=== PATIENT | female | born 1965 | race Caucasian/White ===

== ENCOUNTER 2022-11-14 12:08 | Day surgery (SDC) | payer MEDICAID, SELFPAY ==
--- NOTE | 2022-11-12 16:34 | PCM.HP.BLA ---
History and Physical Date of Admission: 11/14/22 Pre-Op History and Physical ? HPI: The patient is a 57 year old female presenting for pre-operative visit. She is scheduled for hysteroscopy D&C, myomectomy, for AUB for submucosal fibroid on 11/14/22. Procedure discussed along with risks, benefits and complications. Other alternatives discussed for management. Consent form signed? Yes. ? ? PAST MEDICAL HISTORY PAST MEDICAL HISTORY Diagnosis Date ? Allergic rhinitis, cause unspecified ? ? ? PAST SURGICAL HISTORY PAST SURGICAL HISTORY Procedure Laterality Date ? NONE ? 06/2018 ? fibroid Tummor removed ? ? ? CURRENT MEDICATIONS No current outpatient medications on file. ? No current facility-administered medications for this visit. ? ? ALLERGIES: Codeine and Environmental [Other] ? PERSONAL HISTORY: SOCIAL HISTORY Social History ? Tobacco Use ? Smoking status: Never ? Smokeless tobacco: Never Vaping Use ? Vaping Use: Never used Substance Use Topics ? Alcohol use: No ? Drug use: Never ? FAMILY HISTORY: FAMILY HISTORY FAMILY HISTORY Problem Relation Age of Onset ? Hypertension Mother ? ? Hyperlipidemia Mother ? ? Diabetes Mother ? ? Cancer Father ? ? Stomach cancer ? Diabetes Father ? ? Hypertension Father ? ? Hyperlipidemia Father ? ? Heart Father ? ? pacemaker ? COPD Father ? ? other (Pulmonary Embolism) Father ? ? Had DVTs which lead to PE ? other (Other) Father ? ? esophageal adenocarcinoma ? None Sister ? ? Diabetes Maternal Grandfather ? ? Diabetes Paternal Grandfather ? ? Also Uncle with DM ? ? REVIEW OF SYMPTOMS: negative except as noted above PHYSICAL EXAMINATION: ? VITALS: Blood pressure 124/74, height 5' 4 (1.626 m), weight 168 lb (76.2 kg), last menstrual period 11/05/2022. ? GENERAL: The patient is well nourished, well hydrated in no acute distress. , The patient is oriented to time, place, and person. NECK: full range of motion LUNGS: Clear to auscultation bilaterally. no wheezes, rhonchi or rales HEART: Regular rate and rhythm, Normal heart sounds, and No murmurs or gallops ? ? IMPRESSION: Submucosal fibroid, AUB ? PLAN: Hysteroscopy, D&C, Myomectomy ? Pt has been counseled on risks/benefits and alternatives of surgery including but not limited to anesthesia, bleeding, infection, uterine perforation with subsequent injury to pelvic structures including bowel, bladder, ureters and vessels. Pt wishes to proceed with surgery at this time. ? Pre and post op instructions reviewed ? I have reviewed and updated past medical and surgical history, medications and allergies Flory Edwards MD ?4:30 PM Office Visit on 11/12/2022 Office Visit on 11/12/2022 Note shared with patient
[2022-11-14] VITALS (7 sets, daily range): BP systolic 110–140; BP diastolic 67–88; PULSE 53–64; RESP 16; TEMP 36.1–36.6; O2SAT 97–100; BMI 30.1
[2022-11-14 12:48] LABS: Internal QC Validated? YES +Cl - CLEAR BKGD; Pregnancy, Urine Negative Negative
[2022-11-14 13:07] LABS: Hematocrit 37.7 % (37-47); Mean Corp Hgb Conc 34.5 g/dL (32-36); Mean Platelet Vol. 11.3 fl (6.2-12.0); Platelet Count 201 K/mm3 (150-450); RBC Distribution Width CV 11.7 % (11.6-14.6); Red Blood Count 4.19 M/mm3 (4.2-5.4)
[2022-11-14] MEDS: Lactated Ringers 1,000 ML 15 ML IV ×2 (13:10→15:53)
--- NOTE | 2022-11-14 14:00 | EMB_PTH ---
PATIENT: YENI JEFF [place] [facility] [place] U[place][id number] AGE/SX: 57/F ROOM: RE11/14/[address]: Dr. Flory Botello, MDDOB: 1965 BED: DIS: 11/14/2022 SPEC #: [id number] RECD: 11/14/22 16:39 STATUS: RENZO FENG #: [id number] ROBE: 11/14/22 14:[address]: Flory Botello DEPT: SURGICAL PATHOLOGY RECD BY: Sushma Guzman ENTERED: 11/17/22 10:28 SP TYPE: ENDOM BX/C DARREN DR: Dr. Sussy Nolan MD Tissues: Endometrium, NOS Procedures: Surgery Specimen Level IV HEADER OPERATION: Hysteroscopy, D & C Symphion, Myomectomy PRE-OP DIAGNOSIS: Submucosal fluid, abnormal uterine bleeding TISSUE SUBMITTED: Endometrial curettings and submucosal fibroid MICROSCOPIC DIAGNOSIS Endometrial fibroid and curettings: Proliferative endometrium with focal glandular breakdown. Fragments of benign myometrial tissue. AM:keiry 11/18/2022 MICROSCOPIC DESCRIPTION Slides are reviewed. GROSS DESCRIPTION Received in fixative is one container labeled with the patient's name and designated endometrial curettings and submucosal fibroid. The specimen consists of multiple irregular fragments of ca-brown soft tissue that in aggregate measure 2 x 1.5 x 0.2 cm. The specimen is totally submitted in one cassette. / YUMIKO:keiry 11/17/2022 TC:5 CPT: 96752
--- NOTE | 2022-11-14 14:05 | DCINST_ITS ---
Discharge Instructions Procedure D&C Diet Discharge Diet: No restrictions Activity May resume sexual activity in: 1 week Dressing / Incision Call your doctor if you observe: Fever of 101 or Higher, Inability to urinate, Using more than 1 pad per hour and Uncontrolled pain Follow Up Care Please Follow Up With: Flory Botello MD When: 1-2 weeks post OP if you need an appointment please call [phone] Test Results: Test results from this visit will be discussed in further detail at your follow- up appointment, if applicable. Discharge Plan Admission Attending Provider: Flory Botello Primary Care Provider: Sussy Nolan Discharge Orders/Prescriptions Prescriptions: No Action multivitamin Tablet 1 tab PO DAILY cholecalciferol (vitamin D3) [Vitamin D3] 25 mcg (1,000 unit) Tablet 25 mcg PO DAILY Referrals / Follow Up: Sussy Nolan MD [Primary Care Provider] - Disposition Disposition (needs filled in before D/C Order can be placed): Home, Self Care
--- NOTE | 2022-11-14 15:29 | PCM.OPRPT ---
Report of Operation Date of Procedure: 11/14/22 Pre-Operative Diagnosis: AUB, submucosal fibroid Post-Operative Diagnosis: same Surgery/Procedure Performed:: Hysteroscopy, D&C, myomectomy Description of Surgical Findings:: both tubal ostia visualized - submucosal fibroid noted on anterior aspect of uterus Surgeon: Flory Botello Type of Anesthesia: MAC Specimen's removed: endometrial curettings, submucosal fibroid Drains: none Estimated Blood Loss (mL): <5 Fluids Replaced: 400 Description of Procedure: Informed consent was obtained the patient was taken the operating room she was placed in supine position. She was given anesthesia. She was then placed in the [facility] where she was prepped and draped in the normal sterile fashion. bladder drained. At this time the weighted speculum was placed in the posterior fornix of vagina. Single-tooth tenaculum was used to gently grasp the anterior lip the cervix. At this time the uterine cavity was sounded to approximately 9 cm. Gentle dilatation was performed once adequate dilatation of the cervix was achieved the hysteroscope using normal saline as a distention medium was placed. Tubal ostia visualized. anterior submucosal fibroid noted. Symphion resecting device used to obtain endometrial curettings and to perform myomectomy. Tissue will be sent to pathology for evaluation. Tenaculum removed. Good hemostasis. Instrument, lap count correct x 2. fluid deficit 550cc. Vaginal Sweep was negative. Procedure Start Time: 15:17 Procedure Stop Time: 15:27 Complications none Admit VTE Documentation VTE Present on Admission: Yes VTE Mechan Device Prophylaxis: SCD's VTE Pharm Prophylaxis ordered?: No Reason prophylaxis not ordered:: Procedure Not Indicated
== END 2022-11-14 16:50 | disposition home or self-care (01) ==
LOC: SDC 12:10 → AC 12:11
PROVIDERS: Anesthesiology; PCP Internal Medicine; Referring Provider Obstetrics & Gynecology; Visit Provider Obstetrics & Gynecology
PROC: 0UB98ZZ Excision of Uterus, Via Natural or Artificial Opening Endoscopic (ICD-10-PCS; CPT 58558; principal; 2022-11-14 13:45)
DX: D25.0 Submucous leiomyoma of uterus (principal)
CPT/HCPCS: 58561; 00952; 81025; 85027; 88305; J7120; J2405

== ENCOUNTER 2024-12-08 18:00 | Outpatient (RCR) | payer MEDICAID, SELFPAY ==
--- NOTE | 2024-03-28 18:59 | HP.PTEVAL ---
Patient's Visit Information Visit Information Visit Information: YENI JEFF is a 59 year old F referred to Physical Therapy by DOMINGA SLAUGHTER with a diagnosis of CYSTOCELE, RETOCELE, INCOMPLETE UTEROVAGINAL PROLAPSE & MIXED UI. Date of Evaluation: 03/28/24 Physical Therapist: Mandy Keita PT, Cert MDT Visit Plan Frequency: 1x/Week Duration: 6-8 WKS Plan: PF THERAPY FOR STRENGTHENING, LENGTHENING/RELAXATION AND ENDURANCE TRAINING. URINARY URGE EDUCATION/BLADDER RETRAINING. TRAINING IN COORDINATION OF PELVIC FLOOR MUSCULATURE WITH HIP AND CORE (TRANSVERSE ABDOMINUS) MUSCULATURE. CORE STRENGTHENING. RUEL LE ROM, STRETCHING AND STRENGTHENING. TRAINING IN ABDOMINAL CAVITY PRESSURE MGMT WITH ADL'S. Subjective Subjective: Work/Leisure: [employer]IAN. WORKING ABOUT 60 HRS A WEEK. PHYSICAL JOB INCLUDING LIFTING, BENDING AND TWISTING. Present symptoms: FEELING BULGING IN THE VAGINAL AREA - FEELS LIKE A TENNIS BALL BETWEEN LEGS. NO PAIN. SOME DAYS NOT MAKING IT TO THE BATHROOM IN TIME IN THE MORNINGS - IT IS DOWNSTAIRS. DENIES UI WITH COUGHING/SNEEZING EXCEPT RARE OCCASSION WITH FULL BLADDER. Present since: ABOUT 18 MONTHS AGO IS WHEN PROLAPSE STARTED. Pain Scale: N/A Is it getting better, worse or staying the same: STAYING THE SAME Commenced as a result of: NO APPARENT REASON Symptoms at onset: JUST FELT SOMETHING MOVE WHILE STANDING. Worse: WITH INCREASED STANDING/WALKING/WORKING/LIFTING (WORKED 85 HOURS MOTHERS DAY WEEK). FULL BLADDER Better: PESSARY Disturbed sleep: USUALLY DOES NOT NEED TO GET UP AT NIGHT TO URINATE. Previous history/Previous treatment: H/O FIBROIDS IN UTERUS AND HAD SX TO REMOVE THEM 3 YEARS AGO THEN NOV 2022 FURTHER SX TO REMOVE MORE FIBROIDS. NO CANCER. Treatment this episode: PESSARY FOR BLADDER PROLAPSE JANUARY 2023. SURGERY IS SCHEDULED MAY 06 2024 TO RE-ATTACH BLADDER AND REMOVE UTERUS. Gait: NORMAL How long can you delay the need to urinate: LONG NEEDED EXCEPT IN THE MORNINGS SOMETIMES. Prolapse (Falling out feeling): YES Frequency of Urination: 4 TO 5 TIMES A DAY Fluid Intake: APPROX 72 OZ OF WATER A DAY PLUS 1-2 CUPS OF COFFEE. Ability to stop urine flow: YES Ability to initiate urine stream: YES - NO PROBLEM IF PESSARY IS IN BUT HAS TO WIGGLE AROUND IF PESSARY ISN'T IN. Dyspareunia: N/A Bowel Incontinence: NO Accidents: NO Unexplained weight loss: NO Imaging: NO PMH/Recent major surgery: UNREMARKABLE Objective Objective: Sitting/Standing Posture: PATIENT STANDS IN PPT. DECREASED LORDOSIS. NO RELEVANT LATERAL SHIFT. Other Observations: INDEP GAIT AND TRANSFERS Sensory deficit: RUEL LE LIGHT TOUCH SENSATION GROSSLY INTACT AND SYMMETRICAL ROM deficit: TIGHT RUEL LE HS'S, HIP FLEXORS, CALVES, HIP ADDUCTORS AND HIP ROTATORS. Motor deficit: RUEL LE'S 5/5. INTERNAL MANUAL VAGINAL TESTING OF PELVIC FLOOR STRENGTH REVEALS 4/5 STRENGTH X 5 SEC X 4 REPS. Reflexes: 2+ RUEL LE'S. Dural Signs: NEGATIVE RUEL LE'S. Lumbar mvmt loss: flex - NIL ext - MOD R SG - MOD L SG - MOD Core strength: FAIR. Palpation: NO PELVIC TENDERNESS EXTERNALLY OR INTERNALLY WITH PELVIC EXAM. FUNCTIONAL SCREEN: Incontinence Impact Questionnaire Score: 0 Urogenital Distress Inventory Score: 7 Goals Goal 1:: PATIENT WILL SUCCESSFULLY DELAY VOIDING LONG NEEDED WHEN URGENCY OCCURS TO SUCCESSFULLY MAKE IT TO THE BATHROOM IN THE MORNINGS. Goal Time Frame: 6-8 Weeks Goal 2:: PATIENT WILL DEMONSTRATE/COMMUNICATE 10 CONSISTENT AND CONSECUTIVE 10 SECOND PELVIC FLOOR MUSCLE CONTRACTIONS TO DEMONSTRATE IMPROVED PELVIC FLOOR ENDURANCE. Goal Time Frame: 6-8 Weeks Goal 3:: PATIENT WILL BE INDEP WITH A HEP/HOME INSTRUCTIONS FOR CONTINUED IMPROVEMENT ONCE FORMAL PHYSICAL THERAPY CONCLUDES. Goal Time Frame: 6-8 Weeks Rehabilitation Potential Physical Therapy Diagnosis: PELVIC FLOOR WEAKNESS WITH CORE TIGHTNESS AND WEAKNESS AND RUEL HIP TIGHTNESS. URGE INCONTINENCE SYMTOMS. Rehabilitation Potential: Fair Anticipated Interventions Patient/Client Instruction: Educate patient on: Condition, Plan of Care and Risk Factors For the Purpose of:: To improve self management Therapeutic Exercise to Include: Strength training, Endurance training, Coordination, Postural training, Flexibilty training and Neuromotor development For the Purpose of:: To improve muscle performance and motor function, To increase tolerance to activity/condition/position, To improve ability of physical actions for home/community/work/leisure and To increase flexibility/ROM Text: Thank you for the opportunity to evaluate your patient. For Medicare and Medicare HMO plans, please review the plan of care and approve it. It will need to be FAXED BACK to us at [phone] for Medicare purposes. For Medicare only, by signing this I certify the plan of care. Please let me know if there are questions or concerns regarding this plan of care. Physician Signature: Date:
--- NOTE | 2024-07-03 21:35 | HP.PTREVAL_ITS ---
Re-Evaluation Intro: DOMINGA SLAUGHTER, It has been my pleasure to treat YENI JEFF over the last 7 visits for CYSTOCELE, RETOCELE, INCOMPLETE UTEROVAGINAL PROLAPSE & MIXED UI. Please see the progress note below for an update on the physical therapy plan of care! Subjective Subjective: PATIENT REPORTS HAVING POST OP FOLLOW UP 06/21/24 AND EVERYTHING WENT WELL. DID HAVE A FEW STITCHES THAT HAD NOT DISOLVED YET BUT SAID THAT THEY WERE IN THE PROCESS. PATIENT REPORTS HER DISCHARGE RESOLVED THE SUGGESTED IT WOULD. PATIENT DENIES PAIN. SHE STATES SHE IS WALKING ABOUT 10 MILES A DAY BETWEEN WORK AND EX. CURRENTLY WALKING 30 MIN FOR 2.3 MILES A DAY. GAVE HER THE OK TO RESUME ACTIVITY AND PELVIC FLOOR EX'S PREVIOUSLY GIVEN TOLERATED. STATES SHE HAS STARTED TO EASE BACK INTO A FEW OF HER PRIOR PT EX'S. BACK TO WORK RIDER TICKET WORKER NOW. ONLY TOOK ABOUT 3 DAYS OFF WORK AFTER SURGERY. 2ND WK PO WAS BACK TO WORK 8 HRS A DAY. STATES SHE HAD SOME DISCHARGE ABOUT A WK BEFORE SEEING THE DOCTOR 06/21/24 AND NO SX'S SINCE THEN. STATES THE DOCTOR TOLD HER THE SURGERY WAS A TOTAL SUCCESS. BACK PAIN INITIALLY BUT DENIES BACK PAIN NOW. DENIES BOWEL AND BLADDER INCONTINENCE. Objective Objective/Function: UPON EXAM TODAY PATIENT APPEARS TO BE A GOOD CANDIDATE TO RESUME PT FOR WEAKNESS AND TIGHTNESS BELOW AND SHE RESPONDED WELL TO ALL INTERVENTIONS THIS DATE. SHE STATES SHE IS EAGER TO RESUME PT. INDEP GAIT AND TRANSFERS Sensory deficit: RUEL LE LIGHT TOUCH SENSATION GROSSLY INTACT AND SYMMETRICAL ROM deficit: TIGHT RUEL LE HS'S, HIP FLEXORS, CALVES, HIP ADDUCTORS AND HIP ROTATORS. Motor deficit: RUEL LE'S 5/5. INTERNAL MANUAL VAGINAL TESTING OF PELVIC FLOOR STRENGTH REVEALS 4/5 STRENGTH X 6 SEC X 10 REPS. Reflexes: 2+ RUEL LE'S. Dural Signs: NEGATIVE RUEL LE'S. Lumbar mvmt loss: flex - NIL ext - MOD R SG - MOD L SG - MOD Core strength: FAIR. Palpation: NO PELVIC TENDERNESS EXTERNALLY OR INTERNALLY WITH PELVIC EXAM. NO DISCHARGE. FUNCTIONAL SCREEN: Incontinence Impact Questionnaire Score: 0 Urogenital Distress Inventory Score: 0 Plan Plan Plan: RESUME PT 1X/WK X 8-12 WKS FOR PELVIC FLOOR STRENGTHENING, LENGTHENING/RELAXATION AND ENDURANCE TRAINING. TRAINING IN COORDINATION OF PELVIC FLOOR MUSCULATURE WITH HIP AND CORE (TRANSVERSE ABDOMINUS) MUSCULATURE. CORE STRENGTHENING. RUEL LE ROM, STRETCHING AND STRENGTHENING. TRAINING IN PROPER ABDOMINAL CAVITY PRESSURE MGMT WITH ADL'S. HEP INSTRUCTION. Goals Goals Goal 1:: PATIENT WILL SUCCESSFULLY DELAY VOIDING LONG NEEDED WHEN URGENCY OCCURS TO SUCCESSFULLY MAKE IT TO THE BATHROOM IN THE MORNINGS. Goal Time Frame: 6-8 Weeks Goal Progress: Goal Met Goal 2:: PATIENT WILL DEMONSTRATE/COMMUNICATE 10 CONSISTENT AND CONSECUTIVE 10 SECOND PELVIC FLOOR MUSCLE CONTRACTIONS TO DEMONSTRATE IMPROVED PELVIC FLOOR ENDURANCE. Goal Time Frame: 6-8 Weeks Goal Progress: Goal Met Goal 3:: PATIENT WILL BE INDEP WITH A HEP/HOME INSTRUCTIONS FOR CONTINUED IMPROVEMENT ONCE FORMAL PHYSICAL THERAPY CONCLUDES. Goal Time Frame: 6-8 Weeks Goal Progress: Goal Met Anticipated Interventions Anticipated Interventions Patient/Client Instruction: Educate patient on: Condition, Plan of Care and Risk Factors For the Purpose of:: To improve self management Therapeutic Exercise to Include: Strength training, Endurance training, Coordination, Postural training, Flexibilty training and Neuromotor development For the Purpose of:: To improve muscle performance and motor function, To increase tolerance to activity/condition/position, To improve ability of physical actions for home/community/work/leisure and To increase flexibility/ROM Re-Evaluation Ending Re-evaluation ending: Please do not hesitate to contact me at [phone] by phone or if you have questions or concerns regarding this new plan of care! Sincerely, Mandy Keita PT, Cert MDT
--- NOTE | 2024-08-17 08:39 | HP.PTEVAL2 ---
Patient's Visit Information Visit Information Visit Information: YENI JEFF is a 59 year old F referred to Physical Therapy by DOMINGA SLAUGHTER with a diagnosis of shoulder pain. Date of Evaluation: 08/17/24 Physical Therapist: Pillo Ha, PT, ATC Visit Plan Frequency: 2-3x /Week Duration: 4 Weeks Plan: Postural education, c/s retraction, DTR, man mobs, scap stab ex's, and HEP. Consider traction if B UE radiculopathy doesnt improve. Subjective Subjective: Pt reports she has had B shoulder discomfort for a chronic period of time. 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 Pt notes she works 75 hour weeks, and is often sore after her shifts. Pt reports the pain extends down her lower back, and notes her UE's will become numb at times. Pt reports she has neck pain which is constant in nature, and notes the intensity of her pain varies. Pt reports occasional sleep difficulty secondary to her arms becoming numb at times. Pt reports no diagnostic testing for her neck at this time. Pt notes her R thumb becomes numb at times. 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 Pt denies any numbness in her UE's. 3/10 pain while sitting here at rest, 6/10 pain at worst. Pt reports the only thing that helps to decrease her pain is stretching her arms and neck. Pain neck/upper back: Intensity: 3 Pain Intensity Range: 6 Objective Objective: Neuro: B UE sensation is WNL to light touch. B bicipital reflex= 2/3 MMT: B UE's are equal when tested bilaterally being rated at 5/5 throughout ROM: B UE's are WNL when compared bilaterally. C/S is minimally limited with L rot, L SB, extension, and retraction. All other ranges are WNL Repeated movements: Pt experiences radiculopathy in B UE's with protraction of the c/s. Minor relief with retraction. Special testing: Pos c/s distraction test. All shoulder tests are negative. Goals Goal 1:: Decrease B UE radiculopathy x 25-50% to aid with sleep Goal Time Frame: 4-6 Weeks Goal 2:: Increase c/s ROM to WNL to aid with decreasing neck pain Goal Time Frame: 4-6 Weeks Goal 3:: Pt will verbally and physically display proper posture to aid with preventing future episodes of neck pain Goal Time Frame: 4-6 Weeks Goal 4:: I with HEP Goal Time Frame: 4-6 Weeks Rehabilitation Potential Physical Therapy Diagnosis: Pt has B shoulder pain, B UE radiculopathy, and difficulty with sleep secondary to cervical spine dysfunction Rehabilitation Potential: Good Anticipated Interventions Patient/Client Instruction: Educate patient on: Condition and Plan of Care For the Purpose of:: To improve self management Therapeutic Exercise to Include: Strength training, Body mechanics, Postural training and Raheem Exercises For the Purpose of:: To decrease pain, To increase ROM and To improve muscle performance and motor function Intermittent cervical traction: Yes For the Purpose of:: To decrease pain and To increase ROM text: Thank you for the opportunity to evaluate your patient. For Medicare and Medicare HMO plans, please review the plan of care and approve it. It will need to be FAXED BACK to us at [phone] for Medicare purposes. For Medicare only, by signing this I certify the plan of care. Please let me know if there are questions or concerns regarding this plan of care. Physician Signature: Date:
--- NOTE | 2024-09-09 10:00 | HP.PTDCSUM ---
Discharge Summary D/C summary: It has been my pleasure to treat YENI JEFF referred by DOMINGA SLAUGHTER, with the diagnosis of CYSTOCELE, RETOCELE, INCOMPLETE UTEROVAGINAL PROLAPSE & MIXED UI for a total of 13 visit(s). Discharge Date: 09/09/24 Please see the following information for a summary of their discharge status. Subjective Subjective: PATIENT REPORTS SHE IS DOING REALLY WELL. NO UI, UTI SX'S, NO PAIN AND NO PROLAPSE SX'S. EX'S ARE GOING WELL. STARTED PT FOR NECK/SHLD TOO. Pain ABDOMINAL: Pain Intensity (Out of 10): 0 LOW BACK: Pain Intensity (Out of 10): 0 Overall Improvement % Improvement: 100 Objective Objective/Function: PATIENT WAS SEEN TODAY FOR RE-ASSESSMENT OF PROGRESS TOWARD THE SET PT GOALS AND THE NEED FOR FURTHER PHYSICAL THERAPY VS READINESS FOR DISCHARGE. UPON EXAM TODAY, PATIENT IS DOING REALLY WELL. ALL PT GOALS HAVE BEEN MET AND PATIENT IS APPROPRIATE FOR AND AGREEABLE TO DISCHARGE. FUNCTIONAL SCREEN: Incontinence Impact Questionnaire Score: 0 Urogenital Distress Inventory Score: 0 Goals Goal 1:: PATIENT WILL SUCCESSFULLY DELAY VOIDING LONG NEEDED WHEN URGENCY OCCURS TO SUCCESSFULLY MAKE IT TO THE BATHROOM IN THE MORNINGS. Goal Progress: Goal Met Goal 2:: PATIENT WILL DEMONSTRATE/COMMUNICATE 10 CONSISTENT AND CONSECUTIVE 10 SECOND PELVIC FLOOR MUSCLE CONTRACTIONS TO DEMONSTRATE IMPROVED PELVIC FLOOR ENDURANCE. Goal Progress: Goal Met Goal 3:: PATIENT WILL BE INDEP WITH A HEP/HOME INSTRUCTIONS FOR CONTINUED IMPROVEMENT ONCE FORMAL PHYSICAL THERAPY CONCLUDES. Goal Progress: Goal Met Plan Plan: D/C D/C Information d/c sentence: If there are questions or concerns regarding this patient's physical therapy, please feel free to call me at [phone]. Thank you for the referral of this patient. Sincerely, Mandy Keita, PT, Cert MDT Balance/Gait/Functional tests Balance/Special Test Scores Quick DASH Score: 22.7250 Improvement % Improvement: 100
== END 2024-12-08 19:00 | disposition home or self-care (01) ==
LOC: PT 18:00
PROVIDERS: PCP Internal Medicine
DX: N81.2 Incomplete uterovaginal prolapse; N95.2 Postmenopausal atrophic vaginitis; N39.46 Mixed incontinence; Z01.818 Encounter for other preprocedural examination
CPT/HCPCS: 97140; 97161; 97162; 97530